=== PATIENT | male | born 1965 | race Caucasian/White ===

== ENCOUNTER 2020-04-25 14:51 | Outpatient (CLI) | payer OTHER, SELFPAY ==
[2020-04-25 15:17] LABS: Basophils Absolute Auto 0.1 K/mm3 (0.0-0.1); Basophils Percent Auto 1.1 % (0.2-1.2); Eosinophils Absolute Auto 0.3 K/mm3 (0-0.3); Hematocrit 46.7 % (42.0-52.0); Hemoglobin 16.2 g/dL (14.0-18.0); Immature Granulocyte Absolute 0.02 K/mm3 (0.00-0.031); Immature Granulocyte Percent A 0.3 % (0-0.5); Lymphocytes Percent Auto 44.2 % (18.3-44.2); Mean Corpuscular HGB Conc 34.7 g/dl (32-36); Mean Corpuscular Hemoglobin 32.4 pg (26-34); Mean Corpuscular Volume 93.4 fl (80-100); Mean Platelet Volume 10.5 fl (7.4-10.4); Monocytes Absolute Auto 0.7 K/mm3 (0.1-0.6); Monocytes Percent Auto 10.3 % (2.6-8.5); Neutrophils Absolute Auto 2.5 K/mm3 (1.3-6.7); Neutrophils Percent Auto 39.1 % (45.5-73.1); Platelet Count Result 242 k/mm3 (150-375); White Blood Count 6.3 K/mm3 (4.5-10.0)
[2020-04-25 15:38] LABS: Add Urine Microscopic? YES; Appearance Urine Clear (Clear); Bilirubin Urine Negative (Negative); Blood Urine Negative (Negative); Color Urine Yellow (Yellow); Glucose Urine UA Negative (Negative); Ketones Urine Negative (Negative); Leukocyte Esterase Ur Negative LEU/UL (NEGATIVE); Mucus Urine Rare /lpf; Nitrate Urine Negative (Negative); Protein Urine Negative (Negative); RBC Urine 0-2 /hpf (0-2); Urobilinogen Urine Negative mg/dL (<2.0); WBC Urine 0-3 /hpf (0-3)
[2020-04-25 15:55] LABS: Alanine Aminotransferase 42 U/L (4-50); Albumin Level 4.8 g/dL (3.5-5.1); Alkaline Phosphatase 70 U/L (38-126); Anion Gap 12.6 mmol/L (7-16); Aspartate Amino Transferase 42 U/L (17-59); Bilirubin,Total 0.9 mg/dL (0.2-1.3); Blood Urea Nitrogen 13 mg/dL (9-20); Calcium 9.4 mg/dL (8.4-10.2); Carbon Dioxide 27 mmol/L (22-30); Chloride 105 mmol/L (98-107); Cholesterol 172 mg/dL (0-200); Estimated Glomerular Filt Rate > 60; Glucose 95 mg/dL (75-110); HDL Direct 35 mg/dL; Potassium 4.6 mmol/L (3.4-5.0); Sodium 140 mmol/L (137-145); Triglycerides 185 mg/dL (<150)
[2020-04-25 16:27] LABS: LDL Cholesterol Direct 102 mg/dL
[2020-04-25 16:34] LABS: Hemoglobin A1C 5.8 % (<5.7)
== END 2020-04-25 14:52 | disposition home or self-care (01) ==
PROVIDERS: PCP Family Medicine; Visit Provider Physician Assistant
DX: R73.01 Impaired fasting glucose (principal); E78.5 Hyperlipidemia, unspecified; I10 Essential (primary) hypertension; Z12.5 Encounter for screening for malignant neoplasm of prostate
CPT/HCPCS: 36415; 80053; 80061; 81001; 83036; 84153; 84443; 85025

== ENCOUNTER 2020-08-25 07:08 | Outpatient (NON) | payer OTHER, SELFPAY ==
[2020-08-27 16:41] LABS: SARS-CoV-2 RNA PCR Positive
== END 2020-08-25 07:09 ==
LOC: ANHCOVIDDT 07:08
PROVIDERS: PCP Family Medicine; Visit Provider Nurse Practitioner Family
DX: U07.1 COVID-19 (principal)
CPT/HCPCS: 87635; C9803; U0003

== ENCOUNTER 2021-03-15 10:44 | Outpatient (CLI) | payer OTHER, SELFPAY ==
[2021-03-15 11:13] LABS: Basophils Absolute Auto 0.1 K/mm3 (0.0-0.1); Basophils Percent Auto 1.4 % (0.2-1.2); Eosinophils Absolute Auto 0.4 K/mm3 (0-0.3); Eosinophils Percent Auto 6.5 % (0-4.4); Hematocrit 45.2 % (42.0-52.0); Hemoglobin 15.5 g/dL (14.0-18.0); Immature Granulocyte Absolute 0.01 K/mm3 (0.00-0.031); Immature Granulocyte Percent A 0.2 % (0-0.5); Lymphocytes Absolute Auto 1.95 K/mm3 (0.9-3.2); Lymphocytes Percent Auto 35.2 % (18.3-44.2); Mean Corpuscular HGB Conc 34.3 g/dl (32-36); Mean Corpuscular Hemoglobin 31.8 pg (26-34); Mean Corpuscular Volume 92.8 fl (80-100); Mean Platelet Volume 10.4 fl (7.4-10.4); Monocytes Absolute Auto 0.6 K/mm3 (0.1-0.6); Monocytes Percent Auto 11.4 % (2.6-8.5); Neutrophils Absolute Auto 2.5 K/mm3 (1.3-6.7); Neutrophils Percent Auto 45.3 % (45.5-73.1); Platelet Count Result 213 k/mm3 (150-375); Red Blood Count 4.87 M/mm3 (4.6-6.20); Red Cell Distribution Width 12.7 % (11.5-14.5); White Blood Count 5.5 K/mm3 (4.5-10.0)
[2021-03-15 11:17] LABS: Add Urine Microscopic? YES; Appearance Urine Clear (Clear); Bilirubin Urine Negative (Negative); Blood Urine Negative (Negative); Color Urine Yellow (Yellow); Glucose Urine UA Negative (Negative); Ketones Urine Negative (Negative); Leukocyte Esterase Ur Negative LEU/UL (NEGATIVE); Mucus Urine Rare /lpf; Nitrate Urine Negative (Negative); Protein Urine 1+ mg/dL (Negative); RBC Urine 0-2 /hpf (0-2); Specific Grav Ur 1.024 (1.001-1.035); Urobilinogen Urine Negative mg/dL (<2.0); WBC Urine 0-3 /hpf (0-3)
[2021-03-15 11:38] LABS: Alanine Aminotransferase 20 U/L (4-50); Albumin Level 4.6 g/dL (3.5-5.1); Alkaline Phosphatase 58 U/L (38-126); Anion Gap 8 mmol/L (8-16); Aspartate Amino Transferase 25 U/L (17-59); Bilirubin,Total 0.9 mg/dL (0.2-1.3); Blood Urea Nitrogen 14 mg/dL (9-20); Calcium 9.7 mg/dL (8.4-10.2); Carbon Dioxide 28 mmol/L (22-30); Chloride 106 mmol/L (98-107); Cholesterol 194 mg/dL (0-200); Estimated Glomerular Filt Rate > 60; Glucose 96 mg/dL (75-110); HDL Direct 39 mg/dL; Potassium 3.9 mmol/L (3.4-5.0); Sodium 142 mmol/L (137-145); Triglycerides 174 mg/dL (<150)
[2021-03-15 11:49] LABS: LDL Cholesterol Direct 90 mg/dL
[2021-03-15 12:10] LABS: Prostate Specific Antigen 0.9 ng/mL (< OR = 4.0)
[2021-03-15 13:32] LABS: Hemoglobin A1C 5.4 % (<5.7)
== END 2021-03-15 10:45 | disposition home or self-care (01) ==
PROVIDERS: PCP Family Medicine; Visit Provider Physician Assistant
DX: E78.5 Hyperlipidemia, unspecified (principal); R73.01 Impaired fasting glucose; I10 Essential (primary) hypertension; Z12.5 Encounter for screening for malignant neoplasm of prostate
CPT/HCPCS: 36415; 80053; 80061; 81001; 83036; 84153; 84443; 85025

== ENCOUNTER 2022-01-10 13:48 | Outpatient (CLI) | payer OTHER, SELFPAY ==
[2022-01-10 14:16] LABS: Alanine Aminotransferase 44 U/L (4-50); Albumin Level 4.9 g/dL (3.5-5.1); Alkaline Phosphatase 67 U/L (38-126); Anion Gap 9 mmol/L (8-16); Aspartate Amino Transferase 39 U/L (17-59); Bilirubin,Total 0.8 mg/dL (0.2-1.3); Blood Urea Nitrogen 13 mg/dL (9-20); Calcium 9.4 mg/dL (8.4-10.2); Carbon Dioxide 25 mmol/L (22-30); Chloride 105 mmol/L (98-107); Estimated Glomerular Filt Rate > 60; Glucose 144 mg/dL (65-110); Potassium 4.2 mmol/L (3.4-5.0); Sodium 139 mmol/L (137-145)
[2022-01-10 14:42] LABS: Hemoglobin A1C 5.6 % (<5.7)
== END 2022-01-10 13:49 | disposition home or self-care (01) ==
PROVIDERS: PCP Family Medicine; Visit Provider Physician Assistant
DX: R73.01 Impaired fasting glucose (principal); I10 Essential (primary) hypertension
CPT/HCPCS: 36415; 80053; 83036

== ENCOUNTER 2022-08-04 21:37 | Emergency (ER) | payer OTHER, SELFPAY ==
--- NOTE | ~2022-08-04 | XR_ITS ---
EXAM: XR hand RT min 3V DATE: 08/04/2022 22:14 HISTORY: right thumb injury with pain and bruising . COMPARISON: None available. FINDINGS: Normal mineralization. Mildly comminuted nondisplaced fracture of the first distal phalang e, with a fracture line likely extending to the first interphalangeal joint. No lytic or blastic lesi on. Joint spaces are maintained. No erosion or periosteal change. Soft tissues within normal limits. IMPRESSION: Comminuted, mildly displaced, likely intra-articular fracture of the right first distal p halange. Reviewed, dictated and finalized at location K. IMPRESSION: Comminuted, mildly displaced, likely intra-articular fracture of th e right first distal phalange.
[2022-08-04 21:50] VITALS: BP 150/83; PULSE 73; RESP 16; TEMP 36.6; O2SAT 96
--- NOTE | 2022-08-04 22:38 | ED.UPPEXIN ---
HPI - Extremity Injury (Upper) General Chief Complaint: Extremity Injury, Upper Stated Complaint: right thumb Time Seen by Provider: 08/04/22 22:23 Source: patient Mode of arrival: ambulatory Limitations: no limitations History of Present Illness HPI narrative: This is a 57 year old male that presents to the ER for right first finger injury sustained just prior to arrival. Reports he slipped and fell yesterday and caught himself with his right hand. Reports bruising and pain to the right first finger. Reports decreased range of motion due to pain. No other injuries or trauma. He did not hit his head. Denies numbness. Related Data Home Medications Medication Instructions Recorded Confirmed aspirin 81 mg tablet,delayed 81 mg PO DAILY 03/21/20 03/28/22 release Allergies Allergy/AdvReac Type Severity Reaction Status Date / Time No Known Allergies Allergy Verified 08/04/22 21:54 Review of Systems Review of Systems: CONSTITUTIONAL: Denies fever MUSCULOSKELETAL: Reports joint pain, and myalgia. NEUROLOGIC: Denies numbness All systems reviewed & are unremarkable except as noted in HPI and below PMFSH Past Medical History Medical History (Updated 08/04/22 @ 22:44 by Karen Vuong PA-C) History of cleft palate HLD (hyperlipidemia) HTN (hypertension) Surgical History Surgical History Hx of tonsillectomy S/P LASIK surgery Family History Family History Father Family history of stroke Mother Family history of stroke Father Cerebrovascular accident Mother Cerebrovascular accident Social History Social History Smoking status: Never smoker Second hand tobacco smoke exposure: No Alcohol intake: current Drinks per week: 0 Alcohol use details: Occasional Substance use: never Substance use type: does not use Gender identity (if verbalized by the patient): Male Exam Narrative: GENERAL: Well-appearing, well-nourished, and in no acute distress. HEAD: Normocephalic, atraumatic. EYES: EOMI. EXTREMITIES: Mildly decreased active range of motion in the right first finger interphalangeal joint. First distal phalanx is bruised and swollen. Normal radial pulse. Normal sensation SKIN: Warm, dry, no rash. NEURO: No focal deficits. Alert and oriented x3. PSYCH: Normal mood and affect Course Vital Signs Vital signs: Vital Signs Temperature 97.8 F 08/04/22 21:50 Pulse Rate 73 08/04/22 21:50 Respiratory Rate 16 08/04/22 21:50 Blood Pressure 150/83 H 08/04/22 21:50 Pulse Oximetry 96 08/04/22 21:50 Oxygen Delivery Room Air 08/04/22 21:50 Temperature 97.8 F 08/04/22 21:50 Pulse Rate 73 08/04/22 21:50 Respiratory Rate 16 08/04/22 21:50 Blood Pressure 150/83 H 08/04/22 21:50 Pulse Oximetry 96 08/04/22 21:50 Oxygen Delivery Room Air 08/04/22 21:50 Procedures Orthopedic Splinting/Casting Injury #1: Splinting/Casting Date: 08/04/22 Splinting/Casting Time: 22:42 Side: right Upper Extremity Injury Location: finger Upper Extremity Immobilizer: finger (other) Splint: prefabricated Pre-Formed: metal foam finger splint Pre-Procedure Neuro Vascular Exam: normal Post-Procedure Neuro Vascular Exam: normal MDM - Extremity Injury (Upper) MDM Narrative Medical decision making narrative: Patient presents to the emergency department for right first finger injury sustained yesterday. Patient is neurovascularly intact. Right hand x-ray shows a comminuted, mildly displaced, likely intra-articular fracture of the right first distal phalange. Patient was updated on case findings. Placed in a finger splint and will be given follow-up with hand surgery. He was given warnings to return to the ER Imaging Data Radiologist's impression: ITS Impres
== END 2022-08-04 23:07 | disposition home or self-care (01) ==
PROVIDERS: Emergency Provider Emergency Medicine; PCP Family Medicine
DX: S62.521A Displaced fracture of distal phalanx of right thumb, initial encounter for closed fracture (principal); E78.5 Hyperlipidemia, unspecified; I10 Essential (primary) hypertension; Z79.82 Long term (current) use of aspirin; W01.0XXA Fall on same level from slipping, tripping and stumbling without subsequent striking against object, initial encounter
CPT/HCPCS: 29130; 73130; 99284

== ENCOUNTER 2024-06-30 11:54 | Outpatient (CLI) | payer OTHER, SELFPAY ==
[2024-06-30 12:17] LABS: Hematocrit 45.7 % (42.0-52.0); Hemoglobin 15.8 g/dL (14.0-18.0); Mean Corpuscular HGB Conc 34.6 g/dl (32-36); Mean Corpuscular Hemoglobin 32.2 pg (26-34); Mean Corpuscular Volume 93.3 fl (80-100); Mean Platelet Volume 10.2 fl (7.4-10.4); Platelet Count Result 215 k/mm3 (150-375); Red Cell Distribution Width 12.6 % (11.5-14.5); White Blood Count 5.7 K/mm3 (4.5-10.0)
[2024-06-30 12:26] LABS: Add Urine Microscopic? NO; Appearance Urine Clear (Clear); Bilirubin Urine Negative (Negative); Blood Urine Negative (Negative); Color Urine Yellow (Yellow); Glucose Urine UA Negative (Negative); Ketones Urine Negative (Negative); Leukocyte Esterase Ur Negative LEU/UL (Negative); Nitrate Urine Negative (Negative); Protein Urine Negative (Negative); Specific Grav Ur 1.012 (1.001-1.035); Urobilinogen Urine 0.2 mg/dL (<2.0); pH Urine 7.5 (5.0-9.0)
[2024-06-30 12:57] LABS: Hemoglobin A1C 5.9 % (<5.7)
[2024-06-30 13:18] LABS: Alanine Aminotransferase 34 U/L (6-50); Albumin Level 4.7 g/dL (3.5-5.1); Alkaline Phosphatase 60 U/L (38-126); Anion Gap 8 mmol/L (4-12); Aspartate Amino Transferase 35 U/L (17-59); Bilirubin,Total 1.2 mg/dL (0.2-1.3); Blood Urea Nitrogen 13 mg/dL (9-20); Calcium 9.3 mg/dL (8.4-10.2); Carbon Dioxide 26 mmol/L (22-30); Chloride 104 mmol/L (98-107); Cholesterol 188 mg/dL (0-200); Estimated Glomerular Filt Rate > 60; Glucose 97 mg/dL (65-110); HDL Direct 37 mg/dL; Sodium 138 mmol/L (137-145); Triglycerides 157 mg/dL (<150)
[2024-06-30 13:30] LABS: LDL Cholesterol Direct 100 mg/dL
[2024-06-30 13:50] LABS: Prostate Specific Antigen 1.1 ng/mL (< OR = 4.0); Thyroid Stimulating Hormone 0.718 uIU/mL (0.465-4.680)
== END 2024-06-30 11:55 | disposition home or self-care (01) ==
LOC: ANHLAB 11:59
PROVIDERS: PCP Family Medicine; Visit Provider Physician Assistant
DX: Z00.00 Encounter for general adult medical examination without abnormal findings (principal); Z12.5 Encounter for screening for malignant neoplasm of prostate; I10 Essential (primary) hypertension; R73.01 Impaired fasting glucose; E78.5 Hyperlipidemia, unspecified
CPT/HCPCS: 36415; 80053; 80061; 81003; 83036; 84153; 84443; 85027; G0103

== ENCOUNTER 2024-11-14 09:57 | Outpatient (CLI) | payer OTHER, SELFPAY ==
--- OUTSIDE RECORDS SUMMARY | 2024-11-14 10:42 | XMS_ITS | Continuity of Care Document ---
Author Name [facility] Organization [facility] Care Team Providers Care Herpetology Teacher Name Role Phone DOD-AK Unavailable Unavailable Problems Combined list of problems from Department of Defense and Veterans Affairs facilities. It does not include entries that were removed or entered in error. Problem Status Onset Date Problem Type Date of Resolution Comments Source fatty liver Active Condition DoD Serum Enzyme Levels - AST (SGOT) Elevated Active Condition DoD Patient Education Dietary Active Condition DoD routine history and physical adult (18 - 64 yrs) Active Condition DoD visit for: screening exam malignant neoplasm prostate Active Condition DoD visit for: screening malignant neoplasm colon Active Condition DoD fatty liver - nonalcoholic Active Condition DoD obesity Active Condition [facility] Patient Counseling: Active Condition Do D visit for: issue repeat prescription Active Condition DoD Serum Enzyme Levels - ALT (SGPT) Elevated Active Condition DoD pure hypercholesterolemia Active Condition DoD cervicalgia Active Condition [facility] visit for: services physical Inactive Condition DoD familial hypertriglyceridemia Active Condition NEED TO DISCUSS RESULTS WITH PT ON PICK-UP DoD visit for: services physical fpc Inactive Condition SEE SCANNED PHYSICAL FOR LAB AND HISTORYSEE DD 8173 FOR DOCUMENTED MEDICAL PROBLEMS DoD visit for: screening exam cardiovascular disorders Inactive Condition [facility] visit for: ears / hearing exam Active Condition 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 DoD Other Physical Therapy Active Condition Other Physical Therapy DoD visit for: dental exam Inactive Condition visit for: dental exam [facility] assessment of patient condition work status Active Condition [facility] visit for: screening exam ear disorders Inactive Condition DoD postsurgical state of eye and adnexa Active Condition ARTIFICIAL TE AR PRN DoD refractive error - myopia Active Condition [facility] visit for: postsurgical exam Inactive Condition LASIK 1 WE EKs/p LASIK OUD/C Zymar/ FMLCont PFATF/u 3 wks, sooner PRN DoD astigmatism Active Condition DoD ABN FIND-MUSCULOSKEL SYS Active Condition [facility] Medications Combined list of outpatient medications from Department of Defense and Veterans [facility] facilities.Medications provided include 1) outpatient medications from the last 15 months, and 2) patient-reported medications. Medication Details Route Status Patient Instructions Prescription Expires Prescription Number Last Dispense Date Ordering Provider Order Date Order Qty Source AMLODIPINE BESYLATE (amlodipine besylate), 5 MG, TABLET, ORAL, [facility], 1000 ea. BOTTLE Active [id number] 4 2023 90 Pharmac y Data Transac tion Service Facilit y AMLODIPINE BESYLATE (amlodipine besylate), 5 MG, TABLET, ORAL, [facility], 1000 ea. BOTTLE Active [id number] 4 2023 90 Pharmac y Data Transac tion Service Facilit y DOXYCYCLINE HYCLATE (doxycyclin e hyclate), 20 MG, TABLET, ORAL, [employer], 100 ea. BOTTLE Active [id number] 4 2023 60 Pharmac y Data Transac tion Service Facilit y DOXYCYCLINE HYCLATE (doxycyclin e hyclate), 20 MG, TABLET, ORAL, [employer], 100 ea. BOTTLE Active [id number] 4 2023 60 Pharmac y Data Transac tion Service Facilit y Allergies, Adverse Reactions, Alerts Combined list of allergies from Department of Defense and Veterans Affairs facilities. It does not include entries that were removed or entered in error. Substance Category Reaction Severity Reaction type Status Date Reported Comments Source No Known Allergies Drug allergy (disorder) active 12/04/2007 Jin Wong [place] Immunizations Combined list of available immunizations from the Department of Defense and Veterans Affairs facilities. Immunization Series Date Given Administered By Site Reaction Lot Number CVX Code Drug Janitor And Cleaner Status Comments Source influenza, injectable, quadrivalent, preservative free 2021 YENNY, () Not Given influenza , injectabl e, quadrival ent, preservat diana free [facility] COVID-19, mRNA, LNP-S, PF, 100 mcg or 50 mcg dose 2021 YENNY, [employer] (MOD) Not Given COVID-19, mRNA, LNP-S, PF, 100 mcg or 50 mcg dose DoD influenza, injectable, quadrivalent, preservative free 2019 ALUL, () Not Given influenza , injectabl e, quadrival ent, preservat diana free [facility] influenza, injectable, quadrivalent, preservative free 2018 ALUL, () Not Given influenza , injectabl e, quadrival ent, preservat diana free DoD tuberculin purified protein derivative 2006 [id number] CSL Behring complet ed tuberculi n purified protein derivativ e 12/25/06 Given Ambulat ory Pharmac y influenza virus vaccine,split 2005 UNK 15 sanofi pasteur complet ed influenza virus vaccine,s plit 09/01/06 Given Ambulat ory Pharmac y tuberculin purified protein derivative 2005 [id number] 96 Unknown complet ed tuberculi n purified protein derivativ e 07/11/06 Given Ambulat ory Pharmac y typhoid Vi capsular polysaccharid e vac 2004 [id number] 101 Unknown complet ed typhoid Vi capsular polysacch aride vac 08/05/05 Given Ambulat ory Pharmac y influenza virus vaccine, live 2004 [id number] Unknown complet ed influenza virus vaccine, live 08/05/05 Given Ambulat ory Pharmac y vaccinia (smallpox) vaccine 2004 [id number] Unknown complet ed vaccinia (smallpox ) vaccine 08/05/05 Given Ambulat ory Pharmac y tuberculin purified protein derivative 2004 [id number] 96 Unknown complet ed tuberculi n purified protein derivativ e 03/31/05 Given Ambulat ory Pharmac y influenza virus vaccine,split 2003 UNK 15 Unknown complet ed influenza virus vaccine,s plit 07/10/04 Given Ambulat ory Pharmac y tetanus-dipht h toxoids (Td) adult/adol 2002 UNK 09 Unknown complet ed tetanus-d iphth toxoids (Td) adult/ado l 08/29/03 Given Ambulat ory Pharmac y influenza virus vaccine,split 2002 UNK 15 Unknown complet ed influenza virus vaccine,s plit 08/29/03 Given Ambulat ory Pharmac y typhoid Vi capsular polysaccharid e vac 2002 UNK 101 Unknown complet ed typhoid Vi capsular polysacch aride vac 08/29/03 Given Ambulat ory Pharmac y TETANUS (HISTORICAL) 1996 112 complet ed Per patient report [facility] measles/mumps /rubella virus vaccine 1996 [id number] 03 Unknown complet ed measles/m umps/rube lla virus vaccine 12/02/96 Given Ambulat ory Pharmac y hepatitis A adult vaccine 1995 UNK 52 Unknown complet ed hepatitis A adult vaccine 07/26/96 Given Ambulat ory Pharmac y hepatitis A adult vaccine 1995 UNK 52 Unknown complet ed hepatitis A adult vaccine 01/03/96 Given Ambulat ory Pharmac y hepatitis B adult vaccine 1993 UNK 43 Unknown complet ed hepatitis B adult vaccine 09/03/94 Given Ambulat ory Pharmac y hepatitis B adult vaccine 1993 UNK 43 Unknown complet ed hepatitis B adult vaccine 01/27/94 Given Ambulat ory Pharmac y meningococcal polysaccharid e (MPSV4) 1992 [id number] 32 Unknown complet ed meningoco ccal polysacch aride (MPSV4) 01/24/93 Given Ambulat ory Pharmac y poliovirus vaccine, inactivated 1991 [id number] 10 Unknown complet ed polioviru s vaccine, inactivat ed 01/10/92 Given Ambulat ory Pharmac y poliovirus vaccine, inactivated 1986 [id number] 10 Unknown complet ed polioviru s vaccine, inactivat ed 01/15/87 Given Ambulat ory Pharmac y Encounters Combined list of: 1) Encounters from Department of Veterans Affairs facilities going backup to the last 18 months, not all VA inpatient encounters are included; 2) Encounters from the Department of Defense facilities going backup to 280 months. Location Location Details Encounter Type Encounter Number Reason For Visit Attending Provider ADM Date DC Date Status Disposition Source [place] [id number] PRK PREOP MARJAN GILBERT 03/19 Released w/o Limitations [place]) OUT[place] [id number] LASIK 1 DAY ZACK WIGGINS 04/09 Released w/[place] Limitations [place]) OUTPAT[place] [id number] LASIK 1 WK ZACK WIGGINS 04/17 Released w/o Limitations [place]) OUTPATIENT [id number] 1 MONTH LASLIAM WATT Anaid 05/05 Released w/o Limitations [facility] [place] [facility] [place]) [place]PAT[place] [id number] 2mo prk VLADISLAV BOWER BONI 06/17 Released w/o Limitations [facility] [place] [place] [id number] [facility] OPTOMET RY 3 MO F/U TIFFANIE NEWBERYR 08/05 Released w/o Limitations [facility] [place] [place] OUTPATIENT [id number] LEIA GAGNON 08/14 Released w/o Limitations [facility] [place] [facility] OUTPATIENT [id number] 04/23 Released w/o Limitations Theater Facilit y [facility] OUTPATIENT [id number] 05/02 Released w/o Limitations Theater Fac[facility] OUTPATIENT [id number] 06/10 Released w/o Limitations Theater Fac[facility] OUTPATIENT [id number] 07/03 Released w/o Limitations Theater Fac[facility] OUTPATIENT [id number] 07/06 Released w/o Limitations Theater Facilit [facility] OUTPATIENT [id number] 07/08 Released w/o Limitations Theater Facilit y [facility] OUTPATIENT [id number] 07/13 Released w/o Limitations Theater Facilit y [facility] [place] [facility] OUTPATIENT [id number] [facility] optomet ry redeplo TIFFANIE Acosta 09/01 Released w/o Limitations [facility] [place] [facility] [facility] [place] Conserv[facility] [place] OUTPATIENT [id number] LEIA GAGNON 09/01 Released w/o Limitations [facility] [place] [place]ion[place] [facility] [place]) [place] [id number] MARILYN Kelsey 10/29 Released w/o Limitations [facility] [place] [facility] [place] OUTPATIENT [id number] EKG RESULTS NAYA REAGAN ARAIZA 11/02 Released w/o Limitations [facility] [place](Inte rnal Medicin e Clinic) [facility] [place](Medica l Exams Fax [phone]) OUTPATIENT [id number] retirem ent/DD [address] [place] Aimee 11/16 Released w/o Limitations [facility] TASHA Lopez(Medi christin Exams Fax [phone]) [address] [place] [address](Red Pod) OUTPATIENT [id number] upper and lower back pain reoccur ing issue DEANDRE DOTY 03/22 Released w/o Limitations [facility](R ed Pod) [facility](Red Pod) TELE CONSULT [id number] Lab results ALTAGRACIA ZENG 03/26 Referred for Appointment [facility](R ed Pod) [facility](Red Pod) TELE CONSULT [id number] DEANDRE DOTY 03/30 [facility](R ed Pod) [facility](Red Pod) TELE CONSULT [id number] Ultraso und and lab results DEANDRE DOTY 04/16 [facility](R ed Pod) [address] [place] [address](Red Pod) TELE CONSULT [id number] med refill ALTAGRACIA ZENG 05/07 Referred for Appointment [address] [place] [address](R ed Pod) [address] [place] [address](Red Pod) OUTPATIENT [id number] Annual PE. cac FLORENTINO SMITH 05/23 Released w/o Limitations [facility](R ed Pod) [address] [place] [address]([facility]) OUTPATIENT [id number] OBESITY HEETDERKSC OX, FRANKLIN E 06/26 Released w/o Limitations [address] [place] [address](N utritio nal Medicin e Clinic) [address] [place] [address](Red Pod) TELE CONSULT [id number] Elevate d AST/ALT noted prior FLORENTINO SMITH 10/07 [facility](R ed Pod) [address] [place] [address](Gas troentero logy [facility]) OUTPATIENT [id number] Elevate d AST/ALT , fatty Liver LUIS TRUJILLO 11/14 Released w/o Limitations [employer](G astroen terolog y MTF) Procedures Combined list of: 1) Procedures from Department of Veterans Affairs facilities going back up to thelast 18 months, not all VA non-surgical procedures are included; 2) All procedures from the Department of Defense facilities. Procedure Procedure Type Code Date Perfomer Comments Sourc e PURE TONE AUDIOMETRY (THRESHOLD); AIR ONLY DoD OPHTHALMOSCOPY, EXTENDED, WITH RETINAL DRAWING (EG, FOR RETINAL DETACHMENT, MELANOMA), WITH MEDICAL DIAGNOSTIC EVALUATION; SUBSEQUENT DoD MEDICAL NUTRITION THERAPY; GROUP (2 OR MORE INDIVIDUAL(S)), EACH 30 MINUTES 009 DoD SKIN TEST; TUBERCULOSIS, INTRADERMAL DoD PSYCHIATRIC DIAGNOSTIC INTERVIEW EXAMINATION DoD INFLUENZA VIRUS VACCINE, TRIVALENT (IIV3), SPLIT VIRUS, 0.5 ML DOSAGE, FOR INTRAMUSCULAR USE DoD ELECTROCARDIOGRAM, ROUTINE ECG WITH AT LEAST 12 LEADS; INTERPRETATION AND REPORT ONLY DoD ELECTROCARDIOGRAM, ROUTINE ECG WITH AT LEAST 12 LEADS; TRACING ONLY, WITHOUT INTERPRETATION AND REPORT DoD INFECTIOUS AGENT ANTIGEN DETECTION BY IMMUNOASSAY WITH DIRECT OPTICAL (IE, VISUAL) OBSERVATION; STREPTOCOCCUS, GROUP A DoD AUDIOMETRIC TESTING OF GROUPS DoD SCREENING TEST OF VISUAL ACUITY, QUANTITATIVE, BILATERAL DoD AUDIOMETRIC TESTING OF GROUPS DoD TYPHOID VACCINE, CAPSULAR POLYSACCHARIDE (VICPS), FOR INTRAMUSCULAR USE DoD POSTOPERATIVE FOLLOW-UP VISIT, NORMALLY INCLUDED IN THE SURGICAL PACKAGE, INDICATE THAT EVALUATION & MANAGEMENT SERVICE WAS PERFORMED DURING A POSTOPERATIVE PERIOD REASON RELATED ORIGINAL PROCEDURE DoD DETERMINATION OF REFRACTIVE STATE DoD PURE TONE AUDIOMETRY (THRESHOLD); AIR ONLY DoD DETERMINATION OF REFRACTIVE STATE DoD SKIN TEST; TUBERCULOSIS, INTRADERMAL 005 DoD POSTOPERATIVE FOLLOW-UP VISIT, NORMALLY INCLUDED IN THE SURGICAL PACKAGE, INDICATE THAT EVALUATION & MANAGEMENT SERVICE WAS PERFORMED DURING A POSTOPERATIVE PERIOD REASON RELATED ORIGINAL PROCEDURE DoD POSTOPERATIVE FOLLOW-UP VISIT, NORMALLY INCLUDED IN THE SURGICAL PACKAGE, INDICATE THAT EVALUATION & MANAGEMENT SERVICE WAS PERFORMED DURING A POSTOPERATIVE PERIOD REASON RELATED ORIGINAL PROCEDURE 005 [facility] KERATOMILEUSIS 005 [facility] PHYS/OTH QUALIFIED HEALTH FIRE EATER QUALIFIED,EDUCATION, TRAIN,LICENSURE/REGU LATION (WHEN APPLICABLE) EDUC SER RENDERED TO PATS IN A GRP SETTING (EG,,OBESITY ,OR DIABETIC INSTRUCT) 005 [facility] PURE TONE AUDIOMETRY (THRESHOLD); AIR ONLY 004 [facility] SKIN TEST; TUBERCULOSIS, INTRADERMAL 004 [facility] Medical Nutrition Therapy Group (2 or More Individuals) Each 30 Minutes Medical Nutrition Therapy Group (2 or More Individuals) Each 30 Minutes [id number] FRANKLIN SAM [facility] Psychiatric Diagnostic Evaluation Comprehensive Examination Psychiatric Diagnostic Evaluation Comprehensive Examination [id number] BRADLEY HOLCOMB [facility] ECG Interpretation And Report Only ECG Interpretation And Report Only [id number] SHAD ARELLANO [facility] ECG Performance of Tracing Only ECG Performance of Tracing Only [id number] MARILYN STEWART [facility] Audiometry Group Testing Audiometry Group Testing 33162 006 ASHLY VERDUGO [facility] Screening Test Of Visual Acuity, Quantitative, Bilateral Screening Test Of Visual Acuity, Quantitative, Bilateral 98992 006 TIFFANIE MCKEON Audiometry Group Testing Audiometry Group Testing 05382 005 LEIA GAGNON [facility] Postoperative Visit, Without Charge Postoperative Visit, Without Charge 86662 005 TIFFANIE MCKEON Determination Of Refractive State Determination Of Refractive State 61431 005 VLADISLAV BOWRE DoD Postoperative Visit, Without Charge Postoperative Visit, Without Charge 97538 005 VLADISLAV BOWER [facility] Determination Of Refractive State Determination Of Refractive State 15868 005 LIAM HICKEY Postoperative Visit, Without Charge Postoperative Visit, Without Charge 45480 005 LIAM HICKEY Determination Of Refractive State Determination Of Refractive State 99232 005 MARJAN GILBERT Computerized corneal topography, unilateral 005 MARJAN GILBERT Corneal Pachymetry Corneal Pachymetry 09925 20/11 MARJAN GILBERT [facility] Physician Supervised Group Educational Services MARJAN GILBERT [facility] Ophthalmological New Patient Start Comprehensive Care Ophthalmological New Patient Start Comprehensive Care [id number] MARJAN GILBERT [facility] No data available for this section Ambulato ry Pharmacy Social History Combined list of available smoking, tobacco, and other social history from Department of Defense and Veterans Affairs facilities. Social History Type Response Date Comment Sourc e This section is an empty social history section. DoD Assessment and Plan Combined list of future care activities from Department of Defense and Veterans Affairs facilities (e.g., assessment and plan notes, appointments, orders, and referrals). Additional future care activities may be listed in the Plan of Care section. Result Assessment and Plan Date Source Assessment and Plan No data available for this section 11/14/2024 Ambulatory Pharmacy Functional Status Combined list of recent functional and cognitive assessments recorded at Department of Defense and Veterans Affairs (VA).VA Functional [place] Measurement (FIM) Scale: 1 = Total Assistance (Subject = 0% +), 2 = Maximal Assistance (Subject = 25% +), 3 = Moderate Assistance (Subject = 50% +), 4 = Minimal Assistance (Subject = 75% +), 5 = Supervision, 6 = Modified [place] (Device), 7 = Complete [place] (Timely, Safely). Assessment Date/Time Source Assessment Type Assessment Skill Assessment Score Assessment Details No data available for this section
[2024-11-14 10:58] LABS: Influenza A QL RT-PCR Negative (Negative); Influenza B QL RT-PCR Negative (Negative); RSV RNA, RT-PCR Positive (Negative); SARS-CoV-2 RNA PCR Negative (Negative)
== END 2024-11-14 09:58 | disposition home or self-care (01) ==
LOC: ANHLAB 09:57
PROVIDERS: PCP Family Medicine; Visit Provider Physician Assistant Medical
DX: R05.9 Cough, unspecified (principal)
CPT/HCPCS: 87637

== ENCOUNTER 2025-09-14 11:11 | Outpatient (CLI) | payer OTHER, SELFPAY ==
[2025-09-14 13:10] LABS: Influenza A QL RT-PCR Negative (Negative); Influenza B QL RT-PCR Negative (Negative); SARS-CoV-2 RNA PCR Negative (Negative)
== END 2025-09-14 11:12 | disposition home or self-care (01) ==
LOC: ANHLAB 11:12
PROVIDERS: PCP Family Medicine
DX: R50.9 Fever, unspecified (principal); Z20.822 Contact with and (suspected) exposure to COVID-19
CPT/HCPCS: 87636